=== PATIENT | male | born 1965 | race Caucasian/White ===

== ENCOUNTER 2019-02-24 17:58 | Emergency (ER) | payer BC ==
[~2019-02-24] VITALS: Ht 170.2 cm; Wt 101.6 kg
[2019-02-24 18:02] VITALS: Ht 170.2 cm; Wt 101.6 kg
[2019-02-24 19:03] VITALS: BP 148/77
== END 2019-02-24 19:03 | disposition home or self-care (01) ==
LOC: ED 17:58
DX: M54.5 Low back pain (principal); I10 Essential (primary) hypertension
CPT/HCPCS: J1885